=== PATIENT | male | born 2000 | race African-American/Black ===

== ENCOUNTER 2023-09-15 18:41 | Emergency (ER) | payer SELFPAY ==
[2023-09-15 18:44] VITALS: BP 180/114
--- NOTE | 2023-09-15 19:33 | ED.GENMED ---
History of Present Illness
General
Chief Complaint: Insect Sting
Source: patient
Time Seen by Provider: 09/15/23 19:25
History of Present Illness
History of Present Illness:
23yo left hand dominant male with no pertinent past medical history presenting for evaluation of an insect bite of his right hand yesterday. He was bitten by an unknown insect yesterday afternoon. He noticed swelling, redness, and itching to the
hand when he woke up this morning. He tried Benadryl last night without improvement and has been applying ice today. He denies any pain to the hand. He denies any fevers, chills, paresthesias. He is otherwise asymptomatic.
Phy Exam
Physical Exam
Physical Exam:
Right hand: Small bite wound to dorsum of hand with moderate amount of surrounding swelling and erythema consistent with a localized reaction. No drainage, fluctuance, or crepitus. ROM intact. 2+ radial pulse.
General Physical Exam
General Presentation: well appearing and no apparent distress
General age: appears stated age
General Skin: warm and dry
General Habitus: normal
General Mental: alert
Course
Orders/Labs/Results
Orders:
Orders
09/15/23 19:33
Prednisone [Deltasone] 50 mg PO NOW STA
Vital Signs
Initial and Last Documented VS:
Initial Vital Signs
Temp Pulse Resp BP Pulse Ox
99.9 F 94 22 180/114 98
09/15/23 18:44 09/15/23 18:44 09/15/23 18:44 09/15/23 18:44 09/15/23 18:44
Last Documented Vital Signs
Temp Pulse Resp BP Pulse Ox
99.9 F 94 22 180/114 98
09/15/23 18:44 09/15/23 18:44 09/15/23 18:44 09/15/23 18:44 09/15/23 18:44
MDM/Problems Addressed
Differential Diagnosis Includes:
23yoM here with swelling to R hand after an insect bite yesterday. He is afebrile and well appearing. There is evidence of a localized reaction on exam. No clinical evidence of cellulitis or abscess. He was started on a course of prednisone.
Supportive care discussed including ice, elevation, and PRN Benadryl. Advised f/u with PCP and return to the ED with any signs of infection. Patient discharged in stable condition.
*Critical Care Note
Total Time (30-74mins, 75-104mins- exclusive of procedures): Not Applicable
ED Attending Note
-
Portions of this chart may have been created with voice recognition software.� Occasional wrong word or��sound alike� substitutions may have occurred due to the inherent limitations of voice recognition software.
Discharge Plan
Departure
Patient Disposition: Home (Routine Discharge)
Date of Disposition: 09/15/23
Time of Disposition: 19:34
Patient with high blood pressure during this ER visit?: Yes
Discharge Problem:
Insect bite of hand with local reaction
Instructions: Insect bites and stings
Prescriptions:
New
prednisone 50 mg tablet
50 mg PO DAILY Qty: 4 0RF
Referrals:
[facility] [Provider Group]
Activity Restrictions/Additional Instructions:
Take prednisone as prescribed. Apply ice and elevate your hand to help with swelling. Take Benadryl 25mg every 6 hours as needed for itching.
Please follow-up with your family doctor. Return to the ER with any worsening symptoms or signs of infection.
Interventions
Interventions:
*Risk Screen - Suicide Last Done: 09/15/23 18:44
*General Assessment Last Done: 09/15/23 19:45
*Neglect/Abuse Screening Last Done: 09/15/23 18:44
ED- Fall Risk Assessment Last Done: 09/15/23 19:45
*ED COVID-19 Vaccine History Last Done: 09/15/23 19:45
*Nursing Disposition Last Done: 09/15/23 19:45
ED-Skin Assessment Last Done: 09/15/23 19:30
ED- Pulmonary Assessment Last Done: 09/15/23 19:30
Discharge Date and Time
Discharge Date/Time: 09/15/23 19:46
Print Language: [id number]
[2023-09-15] MEDS: DELTASONE 50 MG PO (19:43)
== END 2023-09-15 19:46 | disposition home or self-care (01) ==
LOC: EMR 18:41
PROVIDERS: EMERGENCY PHYSICIAN Emergency Medicine
DX: S60.561A Insect bite (nonvenomous) of right hand, initial encounter (principal); W57.XXXA Bitten or stung by nonvenomous insect and other nonvenomous arthropods, initial encounter
CPT/HCPCS: 99283

== ENCOUNTER 2023-10-19 18:24 | Emergency (ER) | payer BC, SELFPAY ==
[2023-10-19 18:25] VITALS: BP 165/94
[2023-10-19 18:39] VITALS: BMI 29.8
[2023-10-19 19:31] LABS: Carboxyhemoglobin 2.6 %
[2023-10-19 19:39] LABS: Hemoglobin 13.4 g/dL (13.0-18.0); Mean Corp Hgb Conc. 35.3 g/dL (33.0-37.0); Mean Corpuscular Hgb 28.7 pg (27.0-31.0); Mean Corpuscular Volume 81.4 fL (80.0-94.0); Mean Platelet Volume 9.1 fL (7.4-10.4); Platelet Count 207 10^3/uL (130-400); Red Blood Cell Count 4.67 10^6/uL (4.70-6.10); Red Cell Dist. Width 13.3 % (11.5-14.5); White Blood Cell Count 5.3 10^3/uL (4.8-10.8)
[2023-10-19 19:46] LABS: ALT (SGPT) 32 U/L (0-50); AST (SGOT) 31 U/L (17-59); Albumin 4.5 g/dl (3.5-5.0); Alkaline Phosphatase 70 U/L (38-126); Blood Urea Nitrogen 11 mg/dl (9-20); Calcium 9.9 mg/dl (8.4-10.2); Carbon Dioxide 26 mmol/L (22-30); Chloride 104 mmol/L (98-107); Estimated Creatinine Clearance 110 ml/min; Glucose 92 mg/dl (70-99); Potassium 3.8 mmol/L (3.5-5.1); Sodium 137 mmol/L (135-145); Total Protein 7.3 g/dl (6.3-8.2); eGFR > 60.00
[2023-10-19] MEDS: TYLENOL 1000 MG PO (19:57)
--- NOTE | 2023-10-19 19:59 | ED.GENMED ---
History of Present Illness
General
Chief Complaint: Headache
Exam Limitations: none
Time Seen by Provider: 10/19/23 19:01
Nursing documentation reviewed up to this point in time: agreed with
History of Present Illness
History of Present Illness:
Patient to ED with complaint of headache. 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 Brought self to ED for eval. Pulse ox 98% RA
Past History
Past History
ED Past Medical History: None
Review of Systems
Review of Systems
Allergies reviewed?: Yes
All Other Systems: ROS reviewed and negative except as documented in HPI and ROS
Constitutional: Reports no symptoms
EENT: Reports no symptoms
Respiratory: Reports no symptoms
Cardiac: Reports no symptoms
ABD/GI: Reports no symptoms
Musculoskeletal: Reports no symptoms
Skin: Reports no symptoms
Neurological: Reports headache
Psychiatric: Reports no symptoms
Phy Exam
General Physical Exam
General Presentation: well appearing and no apparent distress
General age: appears stated age
General Skin: warm and dry
General Habitus: normal
General Mental: alert
Cardiovascular Exam
Cardiovascular Exam: regular rate/rhythm and no edema
Pulmonary Exam
Pulmonary Exam: lungs clear and no respiratory distress
Gastrointestinal Exam
Gastrointestinal Exam: non tender
Musculoskeletal Exam
Musculoskeletal Exam: full ROM and neuro vasc intact
Skin Exam
Skin Exam: normal color, warm/dry and no rash
Psychiatric Exam
Psychiatric Exam: normal mood/affect
Course
Orders/Labs/Results
Orders:
Orders
10/19/23 19:25
Carboxyhemoglobin Urgent
Complete Blood Count/With Diff Urgent
Comprehensive Metabolic Panel Urgent
10/19/23 19:37
Acetaminophen [Tylenol] 1,000 mg PO NOW STA
Abnormal Lab Results
10/19/23
19:25
RBC 4.67 L 10^6/uL
(4.70-6.10)
Hct 38.0 L %
(39.0-52.0)
10/19/23 19:25
10/19/23 19:25
Vital Signs
Initial and Last Documented VS:
Initial Vital Signs
Temp Pulse Resp BP Pulse Ox
98.5 F 91 18 165/94 96
10/19/23 18:25 10/19/23 18:25 10/19/23 18:25 10/19/23 18:25 10/19/23 18:25
Last Documented Vital Signs
Temp Pulse Resp BP Pulse Ox
98.5 F 91 18 165/94 96
10/19/23 18:25 10/19/23 18:25 10/19/23 18:25 10/19/23 18:25 10/19/23 18:25
*Critical Care Note
Total Time (30-74mins, 75-104mins- exclusive of procedures): Not Applicable
Update Note
Update Note:
Labs reviewed. Normal carboxyhemaglobin. VSS. WIll discharge home. He will followu with [facility]'s comp provider in the AM
ED Attending Note
-
Portions of this chart may have been created with voice recognition software.� Occasional wrong word or��sound alike� substitutions may have occurred due to the inherent limitations of voice recognition software.
Discharge Plan
Departure
Patient Disposition: Home (Routine Discharge)
Date of Disposition: 10/19/23
Time of Disposition: 19:59
Patient with high blood pressure during this ER visit?: No
Condition: Good
Covid-19: Not Applicable
Discharge Problem:
Occupational exposure to chemicals, Headache
Instructions: Headache, Adult (DC)
Prescriptions:
No Action
No Current Medications
0
Referrals:
UNKNOWN - PT DOES,NOT KNOW [Family Provider] -
Stand Alone Forms: Return to Work
Interventions
Interventions:
*Risk Screen - Suicide Last Done: 10/19/23 18:25
*General Assessment Last Done: 10/19/23 18:25
*Neglect/Abuse Screening Last Done: 10/19/23 18:25
ED- Fall Risk Assessment Last Done: 10/19/23 18:39
*ED COVID-19 Vaccine History Last Done: 10/19/23 18:39
ED- Neurological Assessment Last Done: 10/19/23 18:39
Discharge Date and Time
Print Language: [place] K[place]
[2023-10-19 20:05] LABS: % Basophils 0.4 % (0-2); % Eosinophils 2.1 % (0-6); % Immature Granulocytes 0.2 % (0-0.5); % Lymphocytes 55.6 % (20.5-51.1); % Monocytes 5.7 % (1.7-9.3); Absolute Eosinophils 0.1 10^3/uL (0-0.7); Absolute Lymphocytes 2.9 10^3/uL (1.2-3.4); Absolute Monocytes 0.3 10^3/uL (0.1-0.6); Absolute Neutrophils 1.9 10^3/uL (1.4-6.5); Nucleated Red Blood Cells % 0 % (-)
[2023-10-19 20:39] VITALS: BP 160/88
== END 2023-10-19 20:41 | disposition home or self-care (01) ==
LOC: EMR 18:24
PROVIDERS: Nurse Practitioner; EMERGENCY PHYSICIAN Emergency Medicine
DX: R51.9 Headache, unspecified (principal); Z77.098 Contact with and (suspected) exposure to other hazardous, chiefly nonmedicinal, chemicals; X58.XXXA Exposure to other specified factors, initial encounter; Y93.89 Activity, other specified; Y92.89 Other specified places as the place of occurrence of the external cause; Y99.0 Civilian activity done for income or pay; Z88.0 Allergy status to penicillin
CPT/HCPCS: 99283; 80053; 82375; 85025

== ENCOUNTER 2023-11-08 08:37 | Emergency (ER) | payer BC, SELFPAY ==
--- NOTE | 2023-11-08 09:13 | ED.GENMED ---
History of Present Illness
General
Chief Complaint: Musculo-Skeletal Complaint
Time Seen by Provider: 11/08/23 09:11
History of Present Illness
History of Present Illness:
HPI: The patient presents with left great toe pain. This started over the last few days. He states that he was clipping his toenails recently before this started.
EXAM:
GENERAL: Well appearing in no distress
NEUROLOGIC: Excellent strength all extremities, no coordination deficits
PSYCHIATRIC: Appropriate mental status, normal insight and judgement
EXTREMITIES: There is some inflammatory changes to the dorsal medial aspect near the cuticle consistent with paronychia
SKIN: As above
TIME OF INITIAL ENCOUNTER: 9:10 AM
NUMBER AND COMPLEXITY OF PROBLEMS ADDRESSED AT THE ENCOUNTER
� Chronic conditions affecting care: Has had appendectomy in the past
� Acute Exacerbation and/or Progression of Chronic Illness: This is an acute problem
� Differential Diagnosis includes: Paronychia, gout, cellulitis
AMOUNT AND/OR COMPLEXITY OF DATA TO BE REVIEWED AND ANALYZED
� I performed an independent evaluation of and my interpretation is:
EKG:
CT:
X-rays:
Laboratory Studies:
Other:
� Review of other/old records: The patient was seen here earlier this month with headache�had normal carboxyhemoglobin level at that time
� Clinical information was obtained by an independent historian: None needed
� Prescriptions/Medications Considered but not given:
� Further testing considered but not performed:
RISK OF COMPLICATIONS AND/OR MORBIDITY OR MORTALITY OF PATIENT MANAGEMENT
� Social determinants of health affecting care: Lives at home
� Discussion with other providers:
� Escalation of care including admission/observation vs risk of discharge considered: I used an 11 blade scalpel to attempt drainage over there is no significant drainage other than scant amount of blood. Recommended warm soaks
and will start antibiotics.
Past History
Past History
ED Past Medical History: None
Phy Exam
Physical Exam
Physical Exam:
See HPI
Course
Vital Signs
Initial and Last Documented VS:
Initial Vital Signs
Temp Pulse Resp Pulse Ox
98.1 F 66 18 100
11/08/23 08:38 11/08/23 08:38 11/08/23 08:38 11/08/23 08:38
Last Documented Vital Signs
Temp Pulse Resp Pulse Ox
98.1 F 66 18 100
11/08/23 08:38 11/08/23 08:38 11/08/23 08:38 11/08/23 08:38
Procedures
Incision/Drainage/Joint Aspiration
Left First Toe:
Nature of site: abscess
Description of abscess: less than 3cm
How much fluid was obtained?: scant amount
Fluid description: blood tinged
Treatment: bandaid applied
*Critical Care Note
Total Time (30-74mins, 75-104mins- exclusive of procedures): Not Applicable
ED Attending Note
-
Portions of this chart may have been created with voice recognition software.� Occasional wrong word or��sound alike� substitutions may have occurred due to the inherent limitations of voice recognition software.
Discharge Plan
Departure
Patient Disposition: Home (Routine Discharge)
Date of Disposition: 11/08/23
Time of Disposition: 09:38
Patient with high blood pressure during this ER visit?: No
Discharge Problem:
Paronychia
Instructions: Paronychia ED
Prescriptions:
New
doxycycline monohydrate 100 mg capsule
100 mg PO BID Qty: 14 0RF
Referrals:
NONE,* [Family Provider] -
Activity Restrictions/Additional Instructions:
Try to use warm soaks and try to keep the leg elevated. I sent a prescription for an antibiotic to your pharmacy.
Interventions
Interventions:
*Risk Screen - Suicide Last Done: 08/30/24 08:38
*General Assessment Last Done: 11/08/23 08:38
*Neglect/Abuse Screening Last Done: 11/08/23 08:38
*ED COVID-19 Vaccine History Last Done: 11/08/23 08:38
Discharge Date and Time
Print Language: [id number]
[2023-11-08 10:05] VITALS: BP 132/80
== END 2023-11-08 10:06 | disposition home or self-care (01) ==
LOC: EMR 08:37
PROVIDERS: EMERGENCY PHYSICIAN Emergency Medicine
DX: L03.032 Cellulitis of left toe (principal)
CPT/HCPCS: 99282; 10060